=== PATIENT | female | born 1990 | race African-American/Black ===

== ENCOUNTER 2016-08-03 16:30 | Emergency (ER) | payer BC ==
[~2016-08-03 16:30] MED LIST: VOLTAREN75 MG PO
[2016-08-03] MEDS ORDERED: PRENATAL FORMU1 EAC1 PO (16:34)
[2016-08-03 17:37] LABS: URINE SOURCE CLEAN CATCH
[2016-08-03 17:40] LABS: URINE APPEARANCE CLEAR; URINE BILIRUBIN NEG (NEG); URINE BLOOD TRACE-INTACT (NEG); URINE COLOR YELLOW; URINE GLUCOSE NEG (NORM); URINE KETONE NEG (NEG); URINE LEUKOCYTE ESTERASE NEG (NEG); URINE NITRATE NEG (NEG); URINE PROTEIN NEG (NEG); URINE SPECIFIC GRAVITY >=1.030 (1.003-1.035); URINE UROBILINOGEN 0.2 MG/DL (NORM)
[2016-08-03 18:00] LABS: MICRO INDICATED? YES
[2016-08-03 18:08] LABS: CULTURE INDICATED? NO; URINE BACTERIA NEG (NEG); URINE RBC 0-2 /[HPF] (0-2); URINE WBC 0-2 /[HPF] (0-5)
== END 2016-08-03 18:51 | disposition home or self-care (01) ==
LOC: SED 16:30
PROVIDERS: Emergency Medicine
DX: N93.9 Abnormal uterine and vaginal bleeding, unspecified (principal); F17.200 Nicotine dependence, unspecified, uncomplicated
CPT/HCPCS: 81003; 84703; 99284